=== PATIENT | female | born 1935 | race Caucasian/White ===

== ENCOUNTER → 2016-07-13 | Outpatient (CLI) | payer MEDICARE, BC ==
[~2016-07-13] MED LIST: ADV25050 INHALATION; ASPI325T32 PO; DESL5TAB20 PO; FLUT9.9S NASAL; FURO-110 PO; LETR2.5T PO; LEVO125T71 PO; POTA10TA37 PO; TRAM50TA2 PO
--- NOTE | 2016-07-13 09:46 | RADRPT ---
PROCEDURE: XR left knee. CLINICAL INDICATION: Knee pain. TECHNIQUE: AP weightbearing, lateral weightbearing and sunrise views are available for review. COMPARISON: 04/20/2016 FINDINGS: There is a total knee replacement. There is no evidence of loosening of the prosthesis. There is no evidence of hardware failure. The osseous structures are normal in mineralization, architecture and alignment No acute fracture or dislocation is seen.No osseous lesions are identified. The soft tiss ues are unremarkable . there is a small suprapatellar joint effusion. IMPRESSION: Small suprapatellar joint effusion Unremarkable total knee replacement. RPTAT: [facility] .Aquilino Goldman MD, MD Date Time Electronically viewed and signed by .Aquilino Goldman MD, on 07/13/2016 09:45 .B/
== END | disposition home or self-care (01) ==
LOC: HKI 09:06
PROVIDERS: ATTEND Orthopaedic Surgery
DX: Z47.1 Aftercare following joint replacement surgery (principal); Z96.652 Presence of left artificial knee joint; M25.462 Effusion, left knee; I10 Essential (primary) hypertension
CPT/HCPCS: 73562; G0463